=== PATIENT | female | born 1935 | race Caucasian/White ===

== ENCOUNTER 2018-08-03 17:45 | Emergency (ER) | payer OTHER, BC ==
[2018-08-03 17:54] VITALS: BMI 27.1
[2018-08-03] MEDS ORDERED: SODIUM CHLORIDE 1,000 ML IV STA (18:53)
[2018-08-03] MEDS ORDERED: ONDANSETRON 4 MG/2 ML VIAL IVPUSH ONE (18:54)
[2018-08-03] MEDS ORDERED: traMADol HCL 50 MG TABLET PO ONE (18:54)
[2018-08-03] MEDS ORDERED: ALBUTEROL SO4 2.5/IPRATROPIUM 0.5 INH SOL 3 ML VIAL.NEB. NEB ONE (18:57)
--- NOTE | 2018-08-03 19:25 | PDOC ---
Attending Attestation - Resident Resident Name: Dhruv Gomez - ED Attending Attestation I have performed the following: I have examined & evaluated the patient, The case was reviewed & discussed with the resident, I agree w/resident's findings & plan, Exceptions are as noted - HPI HPI: 08/03/18 20:07 83y F hx of advanced uterine ca (recent extended hospitalization at [facility] per pt and her who is a physician) presents s/p fall. The pt states she was walking in the bathroomlast night when she slipped and fell. She struck her heada gainst the tub - she does not think she had any LOC, but states she was unable to get up on her own. Pt notes pain in her R shoulder, R arm and b/l knees. The patient notes she does not want any agressive workup here including labs, IV but will agree to xray of her bones to r/o fracture. On exam: general: chronically ill appearing HEENT: bruising/abrasion on the R cheek, tenderness on the R scalp, R cheek, contusion on the chin with mild tenderness NECK/BACK:no focal tenderness to cervical/thraocic/lumbar spine Abd: no rebound/guarding, firm slighlty tender mass to the pelvis, no cva tenderness EXT: mild diffuse tenderness and pain with ROM to R shoulder, +fullness/ deformity to the distal R radius, eccymosis over latearl R knee without tenderness and with normal ROM and no TTP to LUE and RLE , normal ROM of LLE but mild tenderness over L patella with ecchymosis over anterior L patella pt declines agressive mangement, states she will only agree to xrays to determine if she has a fracture will obtain xrays/ct of head to r/o fx tylenol for pain. - Physicial Exam PE: 08/06/18 16:52 see above - Medical Decision Making pt signed out to dr. hernandez and evening team to reassess the pt and fu with imaging
--- NOTE | 2018-08-03 19:36 | PDOC ---
History of Present Illness - General Chief Complaint: Weakness Stated Complaint: FALL,INJURY Time Seen by Provider: 08/03/18 18:03 History Source: Patient, Spouse - History of Present Illness Initial Comments: 08/03/18 19:30 83F with pmh of end-stage uterine cancer presenting to the ED for fall in the bathroom last night. She states that she fell on her chin last night and hasn't been able to walk since then. 08/03/18 19:37 She felt on her right side and is complaining of shoulder pain, and knee pain. Past History - Past Medical History Allergies/Adverse Reactions: Allergies Allergy/AdvReac Type Severity Reaction Status Date / Time No Known Allergies Allergy Verified 08/03/18 17:51 Home Medications: Ambulatory Orders Acetaminophen W/ Codeine #3 [Tylenol # 3 -] 1 - 2 tab PO Q6H PRN #30 tablet Aspirin [ASA -] 81 mg PO DAILY 03/26/14 Atorvastatin Ca [Lipitor -] 80 mg PO HS 03/26/14 Clopidogrel Bisulfate [Plavix -] 75 mg PO DAILY 03/26/14 Cardiac Disorders: Yes (01/28/14 3 stents) COPD: No GI Disorders: Yes (GERD) Hypercholesterolemia: Yes Other medical history: UTERINE MASS - Surgical History Appendectomy: Yes Cardiac Surgery: Yes (3 stents) - Immunization History Immunization Up to Date: Yes - Suicide/Smoking/Psychosocial Hx Smoking History: Never smoked Information on smoking cessation initiated: No Hx Alcohol Use: No Substance Use Type: None Review of Systems - Review of Systems Able to Perform ROS?: Yes Is the patient limited Lao proficient: No Constitutional: Yes: Weakness HEENTM: No: Symptoms Reported Respiratory: No: Symptoms reported Cardiac (ROS): No: Symptoms Reported ABD/GI: No: Symptoms Reported : No: Symptoms Reported Musculoskeletal: Yes: Other (right shoulder pain) Integumentary: Yes: Bruising Neurological: No: Symptoms reported All Other Systems: Reviewed and Negative *Physical Exam - Vital Signs Last Vital Signs Temp Pulse Resp BP Pulse Ox 98.4 F 86 14 94/53 L 96 08/03/18 18:24 08/03/18 18:24 08/03/18 18:24 08/03/18 18:24 08/03/18 18:24 - Physical Exam General Appearance: Yes: Nourished, Appropriately Dressed, Disheveled. No: Apparent Distress HEENT: positive: EOMI, RICO, Other (swelling and hematoma over chin) Respiratory/Chest: positive: Lungs Clear, Normal Breath Sounds. negative: Chest Tender, Respiratory Distress Cardiovascular: positive: Regular Rhythm, Regular Rate, S1, S2 Gastrointestinal/Abdominal: positive: Normal Bowel Sounds, Flat, Soft. negative : Tender Musculoskeletal: positive: Decreased Range of Motion. negative: Normal Inspection Extremity: positive: Normal Capillary Refill, Normal Inspection. negative: Normal Range of Motion (difficulty ranging arms and legs) Integumentary: positive: Normal Color, Dry, Warm Neurologic: positive: Fully Oriented, Alert, Normal Response. negative: Normal Mood/Affect (looks lethargic), Motor Strength / ED Treatment Course - RADIOLOGY Radiology Studies Ordered: Category Date Time Status FACIAL BONES CT W/O CONTRAST [CT] Stat CT Scan 08/03/18 18:[address] (STROKE) [CT] Stat CT Scan 08/03/18 18:26 Ordered CHEST PA & LAT [RAD] Stat Radiology 08/03/18 18:26 Ordered HIP & PELVIS-LEFT [RAD] Stat Radiology 08/03/18 18:49 Ordered HIP & PELVIS-RIGHT [RAD] Stat Radiology 08/03/18 18:49 Ordered SHOULDER-RIGHT [RAD] Stat Radiology 08/03/18 18:50 Ordered Medical Decision Making - Medical Decision Making 08/03/18 19:45 Patient and patient's who is a general practitioner are declining blood work and imaging: "My is dying of cancer, I don't want her to suffer any longer in the hospital." The patient was recently discharged from [facility] after a partial resection of her uterine tumor. . They are asking to leave AMA. They have an aide who comes to their home to help take care of them. *DC/Admit/Observation/Transfer Diagnosis at time of Disposition: Fall - Discharge Dispostion Disposition: AGAINST MEDICAL ADVICE Decision to Admit order: No - Referrals - Patient Instructions Printed Discharge Instructions: How to Prevent Falls Additional Instructions: Come back to the ER for any new, worsening or concerning symptom. - Post Discharge Activity
[2018-08-03] MEDS ORDERED: ACETAMINOPHEN 325 MG TABLET (FP) PO ONE (20:06)
[2018-08-03 21:22] VITALS: BP 110/78; PULSE 89; TEMP 98.5
== END 2018-08-03 21:52 | disposition left against medical advice (07) ==
LOC: JER 17:45
DX: S00.83XA Contusion of other part of head, initial encounter (principal); S80.02XA Contusion of left knee, initial encounter; S80.01XA Contusion of right knee, initial encounter; W22.8XXA Striking against or struck by other objects, initial encounter; Y93.89 Activity, other specified; Y92.012 Bathroom of single-family (private) house as the place of occurrence of the external cause; Y99.8 Other external cause status; C55 Malignant neoplasm of uterus, part unspecified; I25.10 Atherosclerotic heart disease of native coronary artery without angina pectoris; I10 Essential (primary) hypertension; Z95.5 Presence of coronary angioplasty implant and graft; E78.00 Pure hypercholesterolemia, unspecified
CPT/HCPCS: 99283-25